=== PATIENT | male | born 1955 | race Two or more races ===

== ENCOUNTER 2024-07-01 18:23 | Emergency (ER) | payer OTHER ==
[~2024-07-01] VITALS: Ht 180.3 cm; Wt 118.2 kg
[~2024-07-01 18:23] MED LIST: LEVO500T91 PO; PHEN95TA17 OR
[2024-07-01] MEDS: DEXTROSE 50% SYRINGE 50 ML IV ONE (18:31)
[2024-07-01] MEDS: DEXTROSE (50%) 50ML SYRG IV ONE (19:28)
[2024-07-01] MEDS: SODIUM CHLORIDE 0.9% 1,000 ML IV ONE (19:45)
--- NOTE | 2024-07-01 20:23 | ED.PDOC ---
History of Present Illness HPI Comments 69-year-old male patient with past medical history of diabetes mellitus type 2, hypertension and multiple admissions for UTI/urethral discharge/sepsis presented with chief complaint of abdominal distention and right upper quadrant swelling that started today morning. He is also complaining of rectal discharge which he describes as "Slime" as noticed by his caregiver. Patient was recently discharged from [facility] with a PICC line for IV antibiotics for "slime from ureter" as per daughter and had his antibiotics were finished yesterday. He mentioned that his last bowel movement was yesterday at 1100 hours but has been passing gas. He also has Alvarado's catheter placed for prolonged immobilization due to hip surgery. As per EMS, patient's blood glucose was 48 which did not improve on oral glucose. He denied any complaints of dizziness, headache, chest pain, shortness of breath, diarrhea, melena, hematemesis, nausea, vomiting. He also mentioned of mild left lower quadrant pain, on and off since the morning. Past medical history diabetes mellitus type 2, hypertension and multiple admissions for UTI/urethral discharge/sepsis Past surgical history Cholecystectomy Bilateral hip surgery Medication history Insulin, lisinopril Family history Nonsignificant as per patient Allergic history iodine, IV contrast, Morphine Social history denied smoking, alcohol, marijuana and any other drugs ROS as described in the HPI Examination General Appearance: Alert, Oriented X3, Cooperative, No acute distress Respiratory: Clear to auscultation, Normal air movement Cardiovascular: Regular rate, Normal S1, Normal S2 Abdominal: Distended, no guarding, no rigidity, masslike protrusion and right upper quadrant Extremities: No cyanosis, No edema, Normal pulses, No tenderness/swelling Skin: No rashes, No breakdown Neuro: Normal speech, tone Talked to Dr Alonso, Authorization number for ER stay : [id number]) Chief Complaint: Hypoglycemia Time Seen by MD: 18:26 Reviewed Notes: Squirrel Man Notes Allergies: Coded Allergies: Iodine (Verified Allergy, Unknown, 11/04/23) Morphine (Verified Allergy, Unknown, 11/04/23) Home Meds Active Scripts Levofloxacin Hemihydrate (LEVAQUIN 500 MG) 500 Mg Tab, 500 MG PO DAILY for 7 Days, #7 TAB Prov:ANTHONY GRIMES MD 11/04/23 Phenazopyridine Hcl (EQ URINARY PAIN RELIEF) 95 Mg Tab, 200 MG OR TID, #6 TAB Prov:GRIMES,ANTHONY D MD 11/04/23 Information Source: Patient Mode of Arrival: EMS Differential Dx Considerations may include: UTI, urethritis, proctitis, anal wall abscess, sepsis, abdominal wall hernia, mass, volvulus,bowel obstruction, peritonitis X-Ray, Labs, Meds, VS Vital Signs Date Time Temp Pulse Resp B/P (MAP) Pulse Ox O2 Delivery O2 Flow Rate FiO2 07/01/24 18:30 99.8 105 16 119/76 (90) 93 Lab Test 07/01/24 23:46 07/01/24 20:00 Range/Units Urine Color Yellow Yellow Urine Clarity Turbid H Clear Urine pH 6.0 5.0-9.0 Urine Specific Redbird 1.016 1.001-1.035 Urine Protein 1+ H Negative Urine Ketones Negative Negative Urine Blood 1+ H Negative /uL Urine Nitrite Negative Negative Urine Bilirubin Negative Negative Urine Urobilinogen Normal Negative mg/dL Urine Leukocyte Esterase 3+ Negative /uL Urine RBC 11 0 - 3 /hpf Urine WBC 122 0 - 3 /hpf Urine Squamous Epithelial Cells Few <5 /hpf Urine Bacteria Few H None Seen /hpf Urine Yeast (Budding) Many None Seen /hpf Urine Glucose Normal Normal mg/dL White Blood Count 9.1 4.4-10.8 10^3/uL Red Blood Count 4.47 L 4.5-5.90 10^6/uL Hemoglobin 12.6 L 13.5-17.5 g/dL Hematocrit 38.8 L 41.0-53.0 % Mean Corpuscular Volume 86.7 80.0-100.0 fL Mean Corpuscular Hemoglobin 28.1 28.0-32.0 pg Mean Corpuscular Hemoglobin Concent 32.4 32.0-36.0 g/dL Red Cell Distribution Width 15.0 H 11.8-14.3 % Platelet Count 267 140-450 10^3/uL Mean Platelet Volume 8.8 6.9-10.8 fL Neutrophils (%) (Auto) 71.6 37.0-80.0 % Lymphocytes (%) (Auto) 21.2 10.0-50.0 % Monocytes (%) (Auto) 6.1 0.0-12.0 % Eosinophils (%) (Auto) 0.6 0.0-7.0 % Basophils (%) (Auto) 0.5 0.0-2.0 % Neutrophils # (Auto) 6.5 1.6-8.6 10 ^3/uL Lymphocytes # (Auto) 1.9 0.4-5.4 10 ^3/uL Monocytes # (Auto) 0.6 0-1.3 10 ^3/uL Eosinophils # (Auto) 0.1 0-0.8 10 ^3/uL Basophils # (Auto) 0 0-0.2 10 ^3/uL Nucleated Red Blood Cells 0.0 % Sodium Level 144 136-145 mmol/L Potassium Level 3.3 L 3.5-5.1 mmol/L Chloride Level 107 98-107 mmol/L Carbon Dioxide Level 29 20-31 mmol/L Anion Gap 8 5-15 Blood Urea Nitrogen 19 9-23 mg/dL Creatinine 0.74 0.700-1.30 mg/dL Glomerular Filtration Rate Calc 97 >90 mL/min BUN/Creatinine Ratio 25.7 H 10.0-20.0 Serum Glucose 85 74-106 mg/dL Lactic Acid Level 1.9 0.4-2.0 mmol/L Calcium Level 9.7 8.7-10.4 mg/dL Total Bilirubin 0.3 0.2-1.0 mg/dL Aspartate Amino Transferase (AST) 12 L 13-40 U/L Alanine Aminotransferase (ALT) 21 7-40 U/L Alkaline Phosphatase 106 46-116 U/L Total Protein 6.1 5.7-8.2 g/dL Albumin 3.4 3.2-4.8 g/dL Lipase 19 12-53 U/L Current Medications Medications (Trade) Dose Ordered Sig/Lisette Route Start Time Stop Time Status Last Admin Dextrose 50 ml ONCE ONCE IV 07/01/24 19:30 07/01/24 19:31 DC 07/01/24 19:28 Sodium Chloride 1,000 ml @ 1,000 mls/hr Q1H ONCE IV 07/01/24 19:45 07/01/24 20:44 DC 07/01/24 19:45 Meropenem 50 ml @ 50 mls/hr ONCE ONCE IV 07/02/24 01:30 07/02/24 02:29 07/02/24 02:11 Time of 1ST Reevaluation: 23:32 (Stat surgical consult was placed. [facility] was called. as per discussion with the [facility] Calderon wants surgical evaluation before any further decision. Talked to Dr Alonso, Authorization number for ER stay : [id number]) Reevaluation 1ST: Unchanged Time of 2ND Reevaluation: 00:16 (No call back from surgeon, stat consult was placed again. ) Reevaluation 2ND: Unchanged Time of 3RD Reevaluation: 01:15 (Talked to [facility] again, was explained about surgeon not calling back for consult.Brent mentioned they are going to call their surgeon and will give back a call after that for further updates. ) Reevaluation 3RD: Unchanged Consultation: Surgery Patient Education/Counseling: Diagnosis, Treatment Family Education/Counseling: No Family Present Comments pt presented with complaints of Abd distension, LLQ abd pain, RUQ abdominal swelling. Workup was initiated. pt was Given IV dextrose for hypoglycemia. pt was given IV fluids, IV potassium, IV Fluconazole, and IV meropenem ( considering multiple hospitalizations for UTI, Urine routine showed Evidence of UTI, with few bacteria and many yeasts and as per [facility], pt was discharged on IV meropenam for multi drug resistant UTI) CT abd/pelvis without IV contrast revealed 1. Focal distension of the redundant sigmoid colon may be physiologic although mild/developing sigmoid volvulus can not be excluded in the setting of abdominal pain. pt has no signs of peritonitis 2. Bilateral renal calculi without hydronephrosis. Surgery was consulted stat after CT results. Awaiting call from [facility] regarding further updates on patient care. Awaiting call from Surgeon. We are signing out to Dr Baldwin for further patient care. Departure 1 Departure Time of Disposition: 02:00 (Awaiting call from [facility] regarding further updates on patient care. Awaiting call from Surgeon.We are signing out to Dr Baldwin for further patient care. ) Impression: Primary Impression: Sigmoid volvulus Additional Impression: UTI (urinary tract infection) Disposition: 30 STILL A PATIENT (transferred care to dr Baldwin) Condition: Guarded (d) ELVIN MENDOZA RESIDENT Jul 01, 2024 20:23
[2024-07-01 20:31] LABS: Basophils # (auto) 0 10 ^3/uL (0-0.2); Basophils % (auto) 0.5 % (0.0-2.0); Eosinophils # (auto) 0.1 10 ^3/uL (0-0.8); Eosinophils % (auto) 0.6 % (0.0-7.0); Hematocrit 38.8 % (41.0-53.0); Hemoglobin 12.6 g/dL (13.5-17.5); Lymphocytes # (auto) 1.9 10 ^3/uL (0.4-5.4); Lymphocytes % (auto) 21.2 % (10.0-50.0); Mean Corpuscular Hemoglobin 28.1 pg (28.0-32.0); Mean Corpuscular Hgb Conc. 32.4 g/dL (32.0-36.0); Mean Corpuscular Volume 86.7 fL (80.0-100.0); Monocytes # (auto) 0.6 10 ^3/uL (0-1.3); Monocytes % (auto) 6.1 % (0.0-12.0); Neutrophils # (auto) 6.5 10 ^3/uL (1.6-8.6); Neutrophils % (auto) 71.6 % (37.0-80.0); Platelet Count (auto) 267 10^3/uL (140-450); Red Blood Cells 4.47 10^6/uL (4.5-5.90); White Blood Cell 9.1 10^3/uL (4.4-10.8)
[2024-07-01 20:50] LABS: Alanine Aminotransferase 21 U/L (7-40); Albumin 3.4 g/dL (3.2-4.8); Alkaline Phosphatase 106 U/L (46-116); Anion Gap 8 (5-15); BUN/Creatinine Ratio 25.7 (10.0-20.0); Blood Urea Nitrogen 19 mg/dL (9-23); Calcium 9.7 mg/dL (8.7-10.4); Carbon Dioxide 29 mmol/L (20-31); Glucose 85 mg/dL (74-106); Lipase 19 U/L (12-53); Sodium 144 mmol/L (136-145); Total Protein 6.1 g/dL (5.7-8.2)
[2024-07-01 20:54] LABS: Aspartate Aminotransferase 12 U/L (13-40); Bilirubin, Total 0.3 mg/dL (0.2-1.0); Chloride 107 mmol/L (98-107); Potassium 3.3 mmol/L (3.5-5.1)
--- NOTE | 2024-07-01 22:11 | DVH ---
Exam: CT CT AB PEL WO CON-NO ORAL OR IV History: Abd swelling, rectal discharge Comparison Study: None Technique: Multidetector spiral CT of the abdomen was performed from lung bases to pubic symphysis. Imaging was performed without IV contrast. Axial, coronal and sagittal multiplanar reformats were ob tained from the axial data set by the technologist. Radiation Dose : 1. Abdomen/Pelvis: CTDIvol 24.4 mGy, DLP 1474 mGy*cm. Findings: Evaluation of solid organs is limited due to lack of intravenous contrast use. Lung Bases: Left basilar atelectasis/ scarring. No acute or significant lung base finding. Normal he art size. No pleural or pericardial effusion. Liver: The liver is normal in size. No focal lesions. Gallbladder and Biliary Tree: Gallbladder is surgically absent. Spleen: Unremarkable Pancreas: The pancreas is grossly normal in appearance. Adrenal Glands: Unremarkable Kidneys: No hydronephrosis. Bilateral renal calculi, the largest measuring up to 1.1 cm in the right kidney. Bladder: Grossly unremarkable for degree of distention. Bowel: The stomach is grossly normal in appearance. Focal distension of the redundant sigmoid colon ( up to 13.2 cm) may be physiologic although mild/developing sigmoid volvulus can not be excluded. The appendix is not visualized; however, no secondary findings of acute appendicitis identified. Ascites: Absent Lymphadenopathy: No mesenteric, retroperitoneal or periportal lymphadenopathy. Abdominal Wall and Mesentery: Unremarkable. Vasculature: The visualized abdominal aorta is normal in size and caliber. Evaluation of abdominal a nd pelvic vessels is limited due to lack of intravenous contrast. Pelvic Organs: Urinary bladder is collapsed surrounding Alvarado catheter. Musculoskeletal: No aggressive focal bony lesions, acute fractures or dislocation. IMPRESSION: 1. Focal distension of the redundant sigmoid colon may be physiologic although mild/developing sigmoi d volvulus can not be excluded in the setting of abdominal pain. 2. Bilateral renal calculi without hydronephrosis. Radiation optimization: All CT scans at this facility use at least one of these dose optimization codey hniques: automated exposure control mA and/or kV adjustment per patient size (includes targeted exam s where dose is matched to clinical indication) or iterative reconstruction.
[2024-07-02 00:25] LABS: Urine Bacteria FEW /hpf (None Seen); Urine Blood 1+ /uL (Negative); Urine Budding Yeast MANY /hpf (None Seen); Urine Clarity Turbid (Clear); Urine Color Yellow (Yellow); Urine Protein, UAD 1+ (Negative); Urine Specific Gravity 1.016 (1.001-1.035); Urine Urobilinogen Normal (Negative); Urine WBC 122 /hpf (0 - 3)
[2024-07-02] MEDS: POTASSIUM CHL 20MEQ/100ML 100 ML IV ONE (01:30)
[2024-07-02] MEDS: MEROPENEM 1GM IVPB 50 ML IV ONE (02:11)
[2024-07-02] MEDS: FLUCONAZOLE 200MG/100ML 100 ML IV ONE (02:55)
--- NOTE | 2024-07-02 03:42 | DVH ---
CHEST RADIOGRAPH Indication: PICC line position Technique: Single frontal view of the chest was obtained COMPARISON: None FINDINGS: Lines and Tubes: Right PICC in satisfactory position. Lungs: Diffuse increased interstitial prominence. Pleura: No effusion. No pneumothorax. Cardiomediastinal contours: Cardiomegaly. Lucency under the right hemidiaphragm. Bones: Unremarkable IMPRESSION: Right PICC in satisfactory position. Lucency is present under the right hemidiaphragm which may represent free intraperitoneal air or prom inent loops of air-filled colon as seen on CT dated 07/01/2024. Clinical correlation advised. If the re is concern for free intraperitoneal air CT could be obtained or repeat chest radiograph can be obt ained. Pulmonary vascular congestion.
[2024-07-02 05:40] VITALS: PULSE 67; RESP 14; O2SAT 97
[2024-07-02 07:33] VITALS: PULSE 76; RESP 18; O2SAT 97
[2024-07-02] MEDS ORDERED: cefTRIAXone 1GM/50ML D5W 50 ML IV ONE (09:00)
[2024-07-02 10:04] VITALS: BP 148/65; PULSE 68; RESP 16; TEMP 97.3; O2SAT 97
== END 2024-07-02 11:09 | disposition short-term general hospital (02) ==
LOC: EDUNIT# 18:23 → EDBD 18:23 → ER 18:23
DX: K56.2 Volvulus (principal); N39.0 Urinary tract infection, site not specified; I10 Essential (primary) hypertension; E11.9 Type 2 diabetes mellitus without complications; Z90.49 Acquired absence of other specified parts of digestive tract; Z98.890 Other specified postprocedural states; Z88.5 Allergy status to narcotic agent; Z88.8 Allergy status to other drugs, medicaments and biological substances; Z91.041 Radiographic dye allergy status; Z79.899 Other long term (current) drug therapy
CPT/HCPCS: 36415; 71045; 74176; 80053; 81001; 82962; 83605; 83690; 85025; 87086; 87088; 96361; 96365; 96367; 96375; 99285; J1450; J2185; J3480; J7030; J7042